=== PATIENT | male | born 1995 | race Caucasian/White ===

== ENCOUNTER 2020-05-27 11:06 | Outpatient (CLI) | payer OTHER, SELFPAY ==
[2020-05-28 06:44] LABS: SARS-CoV-2 RNA PCR Negative
== END 2020-05-27 11:07 | disposition home or self-care (01) ==
PROVIDERS: PCP Family Medicine; Visit Provider Family Medicine
DX: R05 Cough (principal); R51.9 Headache, unspecified; J02.9 Acute pharyngitis, unspecified; R50.9 Fever, unspecified; Z20.828 Contact with and (suspected) exposure to other viral communicable diseases
CPT/HCPCS: 87635; C9803; U0003

== ENCOUNTER 2020-06-22 14:46 | Outpatient (CLI) | payer SELFPAY ==
[2020-06-23 12:24] LABS: SARS-CoV-2 RNA PCR Negative
== END 2020-06-22 14:47 | disposition home or self-care (01) ==
LOC: CHSLAB 14:51
PROVIDERS: PCP Family Medicine; Visit Provider Physician Assistant Medical
DX: R05 Cough (principal); R53.83 Other fatigue; Z20.828 Contact with and (suspected) exposure to other viral communicable diseases
CPT/HCPCS: 87635; C9803; U0003

== ENCOUNTER → 2021-02-25 00:43 | Outpatient (CLI) | payer MEDICAID, SELFPAY ==
[2021-02-25 20:12] LABS: SARS-CoV-2 RNA PCR Negative
== END ==
PROVIDERS: PCP Family Medicine; Visit Provider Family Medicine
DX: J02.9 Acute pharyngitis, unspecified (principal); R05 Cough; R09.89 Other specified symptoms and signs involving the circulatory and respiratory systems; R51.9 Headache, unspecified; Z20.822 Contact with and (suspected) exposure to COVID-19
CPT/HCPCS: C9803; U0003; U0005

== ENCOUNTER 2021-07-26 09:09 | Outpatient (CLI) | payer MEDICAID, SELFPAY ==
[2021-07-26 10:09] LABS: Influenza Control Valid (Valid)
[2021-07-27 21:11] LABS: SARS-CoV-2 RNA PCR Positive
== END 2021-07-26 09:10 | disposition home or self-care (01) ==
PROVIDERS: PCP Family Medicine; Visit Provider Family Medicine
DX: U07.1 COVID-19 (principal); R05.9 Cough, unspecified; R53.83 Other fatigue
CPT/HCPCS: 87804; C9803; U0003; U0005

== ENCOUNTER 2022-07-21 10:37 | Emergency (ER) | payer OTHER, SELFPAY ==
[2022-07-21] VITALS (21 sets, daily range): BP systolic 124–139; BP diastolic 85–102; PULSE 67–74; RESP 14–16; TEMP 36.4–36.7; O2SAT 93–100
--- NOTE | ~2022-07-21 | CT_ITS ---
EXAMINATION: CT abdomen pelvis wo con DATE: 07/21/2022 11:20 INDICATION: Left flank pain TECHNIQUE: Computed tomography (CT) of the abdomen and pelvis was performed without intravenous contr ast. Automated exposure control and iterative reconstruction technique were employed. The dose-length product was 298.27 mGy-cm. COMPARISON: None FINDINGS: Calcified right middle lobe nodule consistent with old granulomatous disease. Heart size is normal. N o pericardial or pleural effusion. Small sliding-type hiatal hernia. Liver, gallbladder, spleen, panc reas and bilateral adrenal glands are normal. 2 mm at least partially obstructing stone at the proxim al left ureter with mild left hydronephrosis. No other urolithiasis at either the left or right kidne y or ureter. Partially decompressed bladder is normal. There are couple sigmoid diverticula without a djacent inflammatory change to suggest diverticular colitis. Small bowel and appendix are normal. No free intraperitoneal gas or fluid. No pathologically enlarged abdominal or pelvic lymphadenopathy. Mi ld thoracolumbar dextrocurvature. IMPRESSION: 1. 2 mm proximal left ureteral stone with mild left hydronephrosis. Reviewed, dictated and finalized at location A. ECT BINDER SETTER
[2022-07-21 11:00] LABS: Basophils Percent Auto 0.6 % (0.2-1.2); Eosinophils Percent Auto 0.5 % (0-4.4); Hematocrit 47.4 % (42.0-52.0); Hemoglobin 16.3 g/dL (14.0-18.0); Immature Granulocyte Absolute 0.02 K/mm3 (0.00-0.031); Immature Granulocyte Percent A 0.3 % (0-0.5); Lymphocytes Absolute Auto 1.87 K/mm3 (0.9-3.2); Lymphocytes Percent Auto 29.7 % (18.3-44.2); Mean Corpuscular HGB Conc 34.4 g/dl (32-36); Mean Corpuscular Hemoglobin 31.2 pg (26-34); Mean Corpuscular Volume 90.8 fl (80-100); Monocytes Absolute Auto 0.5 K/mm3 (0.1-0.6); Monocytes Percent Auto 7.3 % (2.6-8.5); Neutrophils Absolute Auto 3.9 K/mm3 (1.3-6.7); Neutrophils Percent Auto 61.6 % (45.5-73.1); Platelet Count Result 319 k/mm3 (150-375); Red Blood Count 5.22 M/mm3 (4.6-6.20); Red Cell Distribution Width 12.2 % (11.5-14.5); White Blood Count 6.3 K/mm3 (4.5-10.0)
[2022-07-21 11:01] LABS: Appearance Urine Cloudy (Clear); Bilirubin Urine 2+ (Negative); Blood Urine 3+ (Negative); Color Urine Yellow (Yellow); Glucose Urine UA Negative (Negative); Ketones Urine 2+ mg/dL (Negative); Leukocyte Esterase Ur Negative LEU/UL (Negative); Nitrate Urine Negative (Negative); Protein Urine 2+ mg/dL (Negative); Specific Grav Ur >= 1.030 (1.001-1.035); pH Urine 5.5 (5.0-9.0)
[2022-07-21 11:06] LABS: Mucus Urine Heavy /lpf; RBC Urine >75 /hpf (0-2); WBC Urine 0-3 /hpf
[2022-07-21 11:12] LABS: Add Urine Microscopic? YES
--- NOTE | 2022-07-21 11:13 | ED.ABDPAIN ---
HPI - Abdominal Pain General Chief Complaint: Abdominal Pain Stated Complaint: left flank pain Time Seen by Provider: 07/21/22 10:45 History of Present Illness HPI narrative: 27-year-old male presented to the emergency department for evaluation of left flank pain. Patient states symptoms started approximate 1 hour prior to arrival. Patient denies left flank pain that does radiate to his left lower quadrant. Patient denies any pain or radiation to his testicles. Patient does report associated nausea and vomiting. Patient denies any prior history of kidney stones. Patient denies any abdominal surgical history. Related Data Allergies Allergy/AdvReac Type Severity Reaction Status Date / Time No Known Allergies Allergy Mild Verified 11/11/12 18:15 Review of Systems Review of Systems: CONSTITUTIONAL: Denies fever, chills, or sweats. EYES: Denies visual changes, redness, or discharge. ENT: Denies rhinorrhea, congestion, sore throat, or otalgia. CARDIOVASCULAR: Denies chest pain, palpitations, or edema. RESPIRATORY: Denies cough or dyspnea. GASTROINTESTINAL: See HPI GENITOURINARY: Denies dysuria or hematuria. SKIN: Denies rash or itching. MUSCULOSKELETAL: Denies back pain, joint pain, or myalgia. NEUROLOGIC: Denies headache, numbness, or weakness. PMFSH Social History Social History Smoking status: Never smoker Alcohol intake: never Exam Narrative: APPEARANCE: Well appearing, no pain, no distress, well-nourished. HEAD: normocephalic, atraumatic. EYES: PERRLA/EOMI, conjunctivae clear. THROAT: Pharynx clear, no exudate. NECK: Supple. No adenopathy, no masses. RESPIRATORY: Airway patent, respirations nonlabored. Clear to auscultation bilaterally, no rales, rhonchi, wheezing. CARDIOVASCULAR: Regular rate and rhythm without murmurs rubs or gallops. ABDOMINAL: Left CVA tenderness to palpation. Minimal left lower quadrant tenderness to palpation. MUSCULOSKELETAL: Moves all extremities. Strength/ROM intact, No edema, No calf tenderness. NEURO: Alert. Cranial nerves II through XII intact. Grossly intact SKIN: Warm, dry. Normal Color Course Course Emergency Course: Patient was afebrile with no leukocytosis. Patient's UA does show evidence of hematuria but no evidence of infection. A 2 mm proximal ureteral stone. Differential diagnosis for patient's flank pain included diverticulitis, kidney stone, urinary tract infection, colitis, gastritis. Patient was diagnosed with a kidney stone. Patient declined to take the Flomax because he states he cannot take oral medications. Patient and mother were updated on the results of the work-up and plan for treatment at home. Patient reports he did have significant provement of his pain and his nausea was controlled. Patient was encouraged to have close follow-up with urology. All questions concerns were addressed. Vital Signs Vital signs: Vital Signs Temperature 97.6 F 07/21/22 10:39 Pulse Rate 67 07/21/22 10:39 Respiratory Rate 14 07/21/22 10:39 Blood Pressure 139/96 H 07/21/22 10:39 Pulse Oximetry 99 07/21/22 10:39 Oxygen Delivery Room Air 07/21/22 10:39 Temperature 98.0 F 07/21/22 13:01 Pulse Rate 70 07/21/22 13:16 Respiratory Rate 16 07/21/22 13:16 Blood Pressure 137/99 H 07/21/22 13:16 Pulse Oximetry 100 07/21/22 13:16 Oxygen Delivery Room Air 07/21/22 10:39 MDM - Abdominal Pain Lab Data Attestation: I reviewed the patient's lab results. 07/21/22 10:54 07/21/22 10:54 Labs: Lab Results 07/21/22 07/21/22 07/21/22 Range/Units 10:54 10:54 10:54 WBC 6.3 (4.5-10.0) K/mm3 RBC 5.22 (4.6-6.20) M/mm3 Hgb 16.3 (14.0-18.0) g/dL Hct 47.4 (42.0-52.0) % MCV 90.8 (80-100) fl MCH 31.2 (26-34) pg MCHC 34.4 (32-36) g/dl RDW 12.2 (11.5-14.5) % Plt Count 319 (150-375) k/mm3 MPV 10.0 (7.4-10.4) fl Immature Gran % (Auto) 0.3 (0-0.5) % Neut % (Auto) 6
[2022-07-21 11:14] LABS: Alanine Aminotransferase 44 U/L (6-50); Albumin Level 4.8 g/dL (3.5-5.1); Alkaline Phosphatase 81 U/L (38-126); Anion Gap 7 mmol/L (8-16); Aspartate Amino Transferase 34 U/L (17-59); Bilirubin,Total 3.4 mg/dL (0.2-1.3); Blood Urea Nitrogen 12 mg/dL (9-20); Carbon Dioxide 28 mmol/L (22-30); Chloride 101 mmol/L (98-107); Estimated CRCL calculation 81 ml/min; Estimated Glomerular Filt Rate > 60; Glucose 110 mg/dL (65-110); Potassium 3.9 mmol/L (3.4-5.0); Sodium 136 mmol/L (137-145)
[2022-07-21] MEDS: ONDANSETRON INJ 4 MG/2 ML VIAL IV PUSH (11:23)
[2022-07-21] MEDS: HYDROmorphone HCL INJ (*CRX) 1 MG/ML SYR IV PUSH (11:23)
[2022-07-21] MEDS: SODIUM CHLORIDE 0.9% IV 1,000 ML 999 ML IV CONT (11:23)
[2022-07-21] MEDS: KETOROLAC 15 MG/ML VIAL (*BKC) IV PUSH (12:02)
--- NOTE | 2022-07-21 12:21 | PC.NURSE ---
pt refuses to take tamsulosin because he reports he has never been able to swallow pills
== END 2022-07-21 13:29 | disposition home or self-care (01) ==
PROVIDERS: Emergency Provider Emergency Medicine; PCP Family Medicine
DX: N13.2 Hydronephrosis with renal and ureteral calculous obstruction (principal)
CPT/HCPCS: 36415; 74176; 80053; 81001; 85025; 96374; 96375; 99284; J1170; J1885; J2405; J7030

== ENCOUNTER 2022-07-22 16:44 | Emergency (ER) | payer OTHER, MEDICAID, SELFPAY ==
--- NOTE | ~2022-07-22 | CT_ITS ---
EXAMINATION: CT abdomen pelvis wo con DATE: 07/22/2022 17:09 INDICATION: Left flank pain TECHNIQUE: Computed tomography (CT) of the abdomen and pelvis was performed without intravenous contr ast. Automated exposure control and iterative reconstruction technique were employed. The dose-length product was 291.62 mGy-cm. COMPARISON: 07/21/2022 FINDINGS: Lung bases are clear. Heart size is normal. No pericardial or pleural effusion. Liver, gallbladder, s pleen, pancreas, bilateral adrenal glands and right kidney are normal. Slight increase in still mild left hydroureteronephrosis due to a 3 x 2 mm stone which has advanced now at the left ureterovesicula r junction. There is increasing left ureteral and perinephric stranding. Decompressed bladder is norm al. Bowels including appendix are normal. No free intraperitoneal gas or fluid. No pathologically enl arged abdominal or pelvic lymphadenopathy. Mild thoracolumbar dextrocurvature. IMPRESSION: 1. Interval advancement of a 2-3 mm left ureteral stone now at the ureterovesicular junction with sli ght increase in mild left hydronephrosis and increasing perinephric/ureteral stranding. Correlate wit h urinalysis to exclude associated ascending urinary tract infection. Reviewed, dictated and finalized at location A. ITURE DECALS INSPECTOR IMPRESSION: 1. Interval advancement of a 2-3 mm left ureteral stone now at the ureterovesic ular junction with slight increase in mild left hydronephrosis and increasing p erinephric/ureteral stranding. Correlate with urinalysis to exclude associated ascending urinary tract infection.
[2022-07-22 16:45] VITALS: BP 135/96; PULSE 79; RESP 20; TEMP 37.2; O2SAT 98
[2022-07-22 16:47] VITALS: BP 135/96; PULSE 86; RESP 18; TEMP 37.2; O2SAT 98
[2022-07-22 16:54] VITALS: BP 135/96; PULSE 86; RESP 18; TEMP 37.2; O2SAT 98
[2022-07-22] MEDS: ONDANSETRON INJ 4 MG/2 ML VIAL IV PUSH (17:11)
[2022-07-22] MEDS: SODIUM CHLORIDE 0.9% IV 1,000 ML 999 ML IV CONT (17:11)
[2022-07-22] MEDS: KETOROLAC 30 MG/ML VIAL (*BKC) IV PUSH (17:11)
[2022-07-22 17:39] LABS: Basophils Absolute Auto 0.03 K/mm3 (0.00-0.10); Basophils Percent Auto 0.2 % (0.0-1.0); Hematocrit 42.7 % (40.0-54.0); Hemoglobin 14.6 g/dL (14.0-18.0); Immature Granulocyte Absolute 0.06 K/mm3 (0.00-0.00); Immature Granulocyte Percent A 0.4 % (0.0-0.0); Lymphocytes Absolute Auto 1.07 K/mm3 (1.10-4.50); Lymphocytes Percent Auto 7.8 % (18.0-42.0); Mean Corpuscular HGB Conc 34.2 g/dL (32.0-36.0); Mean Corpuscular Hemoglobin 31.1 pg (27.0-31.0); Mean Corpuscular Volume 90.9 fL (78.0-102.0); Mean Platelet Volume 10.7 fl (8.7-11.0); Monocytes Absolute Auto 0.92 K/mm3 (0.10-0.90); Monocytes Percent Auto 6.7 % (2.0-11.0); Neutrophils Absolute Auto 11.7 K/mm3 (1.7-7.2); Neutrophils Percent Auto 84.9 % (50.0-70.0); Platelet Count Result 255 K/mm3 (150-420); Red Cell Distribution Width 11.7 % (11.6-14.4); White Blood Count 13.8 K/mm3 (4.8-10.8)
[2022-07-22 17:53] LABS: Alanine Aminotransferase 33 U/L (16-63); Albumin Level 3.8 g/dL (3.4-5.0); Alkaline Phosphatase 69 U/L (46-116); Anion Gap 9 mmol/L (8-16); Aspartate Amino Transferase 17 U/L (15-37); Bilirubin,Total 3.2 mg/dL (0.00-1.00); Blood Urea Nitrogen 16 mg/dL (7-18); Calcium 8.1 mg/dL (8.5-10.1); Carbon Dioxide 27 mmol/L (21-32); Chloride 101 mmol/L (98-108); Estimated CRCL calculation 79 ml/min; Estimated Glomerular Filt Rate > 60; Glucose 95 mg/dL (70-99); Osmolality Calculated 285 mOsm/kg (285-295); Potassium 3.7 mmol/L (3.5-5.1); Sodium 137 mmol/L (136-145); Total Protein 6.6 g/dL (6.4-8.2)
[2022-07-22 18:12] LABS: Bilirubin Urine 2+ (Negative); Blood Urine 3+ (Negative); Glucose Urine UA Negative (Negative); Ketones Urine 3+ (Negative); Leukocyte Esterase Ur Trace LEU/UL (Negative); Nitrate Urine Negative (Negative); Protein Urine 1+ (Negative); Specific Grav Ur >= 1.030 (1.010-1.020)
[2022-07-22 18:21] LABS: Add Urine Microscopic? YES; Appearance Urine Cloudy (Clear); Calcium Oxalate Crystals Urine Many /hpf; Color Urine Dark Yellow (Yellow); RBC Urine >75 /hpf (0-2)
[2022-07-22 18:22] LABS: Bacteria Urine 4+ /hpf; Mucus Urine Heavy /lpf
--- NOTE | 2022-07-22 18:22 | ED.NAVMDI ---
HPI - Nausea/Vomiting/Diarrhea General Chief complaint: Nausea/Vomiting/Diarrhea Stated complaint: stuck kidney stone;puking more Time Seen by Provider: 07/22/22 16:47 Source: patient Mode of arrival: ambulatory Limitations: no limitations History of Present Illness HPI Narrative: this is a 27-year-old gentleman that presents with some left flank pain was diagnosed yesterday [facility] with a kidney stone that was in the proximal ureter on the left, the patient was given pain control and sent home with pain medication and Flomax, patient presents again today to our emergency department with left flank pain and nausea and vomiting and having difficultly holding down his pain medication because of the nausea and vomiting. Currently there is no fever chills, no hematuria no diarrhea constipation. MD elicited complaint: nausea and vomiting Onset (ago): day(s) Related Data Allergies Allergy/AdvReac Type Severity Reaction Status Date / Time No Known Allergies Allergy Mild Verified 07/22/22 16:52 Review of Systems Review of Systems: All systems reviewed & are unremarkable except as noted in HPI and below PMFSH Past Medical History Medical History Urolithiasis Social History Social History Smoking status: Never smoker Alcohol intake: never Exam Const: General: healthy appearing Nutritional Appearance: well nourished Limitations: no limitations HENMT: Head: normal to inspection Ears: external ears normal Face and sinus: normal facial exam Mouth: Yes Normal oral and palatal mucosa present Throat: posterior oropharynx normal Eyes: Conjunctivae: conjunctivae normal Pupils: Equal, round and reactive pupils present EOM: EOMs intact bilaterally Direct Ophthalmoscopy: no photophobia Neck: Neck: normal visual inspection Chest: Chest palpation & inspection: normal inspection of the chest Resp: Effort & Inspection: normal respiratory effort Auscultation: clear to auscultation bilaterally Cardio: Rate: regular rate Rhythm: regular rhythm GI: GI Palp: Yes Soft to palpation Auscultation: normal bowel sounds : General: Yes bladder normal to palpation and Yes CVA tenderness Other: left flank tenderness with palpation Urinary Catheter: Urinary Catheter: patent and draining Back/Spine/Pelvis: Back: CVA tenderness Skin: General skin exam: normal color Rashes: no rashes Wounds: no wounds Neuro: General: patient oriented x3 Cranial nerves: Yes Nystagmus not present Speech: normal speech Gait exam (Neuro): Normal gait present Extrem: General: normal to inspection Psych: Mental Status: mental status grossly normal Affect: normal affect Course Course Emergency Course: patient received IV fluids and IV Toradol along with IV Zofran nausea and vomiting have significantly improved pain level he still rates it around 4 to a 6 and will give a dose of Dilaudid, reviewed CT scan with patient and family which shows that the kidney stone has migrated distally and is at the UVJ at this time as opposed to proximal ureter yesterday in the ER at [place]. Vital Signs Vital signs: Vital Signs Temperature 37.2 C 07/22/22 16:45 Pulse Rate 79 07/22/22 16:45 Respiratory Rate 20 07/22/22 16:45 Blood Pressure 135/96 H 07/22/22 16:45 Pulse Oximetry 98 07/22/22 16:45 Oxygen Delivery Room Air 07/22/22 16:45 Temperature 37.2 C 07/22/22 16:54 Pulse Rate 86 07/22/22 16:54 Respiratory Rate 18 07/22/22 16:54 Blood Pressure 135/96 H 07/22/22 16:54 Pulse Oximetry 98 07/22/22 16:54 Oxygen Delivery Room Air 07/22/22 16:54 MDM - Nausea/Vomiting/Diarrhea Lab Data 07/22/22 17:31 07/22/22 17:31 Labs: Lab Results 07/22/22 07/22/22 07/22/22 Range/Units 17:31 17:31 17:31 WBC 13.8 H (4.8-10.8) K/mm3 RBC 4.70
[2022-07-22] MEDS: HYDROmorphone HCL INJ (*CRX) 2 MG/ML VIAL 0.5 MG IV PUSH (18:26)
[2022-07-22 18:35] VITALS: BP 119/68; PULSE 68; RESP 16; O2SAT 98
== END 2022-07-22 18:39 | disposition home or self-care (01) ==
PROVIDERS: Emergency Provider Emergency Medicine; PCP Family Medicine
DX: N20.1 Calculus of ureter (principal); R11.2 Nausea with vomiting, unspecified
CPT/HCPCS: 36415; 74176; 80053; 81001; 85025; 96361; 96374; 96375; 99284; J1170; J1885; J2405; J7030

== ENCOUNTER 2022-07-26 10:22 | Outpatient (CLI) | payer OTHER, SELFPAY ==
--- NOTE | ~2022-07-26 | CT_ITS ---
Non-contrast CT scan of the Abdomen and Pelvis Clinical indication: Left ureteral stone Technique: 5 mm axial scans were obtained through the abdomen and pelvis without intravenous or oral contrast. Dose reduction technique was used on this scan by utilizing automated exposure control and iterative reconstruction technique. The dose-length product (DLP) was 337.12 mGy-cm. COMPARISON: 07/22/2022 Findings: Images through the lung bases reveal no abnormalities. 2 mm left UVJ stone is present, without left hydronephrosis. No right renal or ureteral stone. No rig ht hydronephrosis. The liver, spleen, pancreas, gallbladder, and adrenals appear normal. There is no aortic aneurysm. There is no evidence of bowel obstruction. Normal appendix. Images through the pelvis were performed. There is no evidence of ascites or lymphadenopathy. Urinary bladder otherwise unremarkable. Prostate gland mildly enlarged. Impression: Left ureteral stone remains at the left UVJ, unchanged in position. Interval resolution of left hydronephrosis since prior exam however. Reviewed, dictated and finalized at [facility]. S AND MARKETING COORDINATOR Impression: Left ureteral stone remains at the left UVJ, unchanged in position. Interval resolution of left hydronephrosis since prior exam however.
== END 2022-07-26 10:23 | disposition home or self-care (01) ==
PROVIDERS: PCP Family Medicine; Visit Provider Urology
DX: N20.1 Calculus of ureter (principal)
CPT/HCPCS: 74176

== ENCOUNTER 2022-08-01 14:20 | Outpatient (CLI) | payer OTHER, SELFPAY ==
--- NOTE | ~2022-08-01 | CT_ITS ---
Non-contrast CT scan of the Abdomen and Pelvis Clinical indication: Left ureteral stone Technique: 5 mm axial scans were obtained through the abdomen and pelvis without intravenous or oral contrast. Dose reduction technique was used on this scan by utilizing automated exposure control and iterative reconstruction technique. The dose-length product (DLP) was 194.71 mGy-cm. COMPARISON: 07/26/2022 Findings: Images through the lung bases reveal no abnormalities. There is no evidence of renal or ureteral calculi. The kidneys and the ureters are nondilated. The liver, spleen, pancreas, gallbladder, and adrenals appear normal. There is no aortic aneurysm. There is no evidence of bowel obstruction. Images through the pelvis were performed. There is no evidence of ascites or lymphadenopathy. Stable 3 mm stone either at the left UVJ or just within the urinary bladder. Prostate gland and seminal vesi cles are unremarkable. Impression: Stable 3 mm stone at the left UVJ, or possibly just within the urinary bladder. Positioning is unchan ged from prior exam. No hydronephrosis. Reviewed, dictated and finalized at [facility]. GEMENT SCIENTIST Impression: Stable 3 mm stone at the left UVJ, or possibly just within the urinary bladder. Positioning is unchanged from prior exam. No hydronephrosis.
== END 2022-08-01 14:21 | disposition home or self-care (01) ==
PROVIDERS: PCP Family Medicine; Visit Provider Urology
DX: N20.1 Calculus of ureter (principal)
CPT/HCPCS: 74176

== ENCOUNTER 2022-08-03 00:11 | Day surgery (SDC) | payer OTHER, SELFPAY ==
[2022-08-02 10:29] VITALS: BMI 25.0
--- NOTE | 2022-08-02 10:32 | PC.NURSE ---
Report to the Outpatient Waiting Room, entrance under the green pavilion located off [facility], at time 1400 on date 08/03/22. Planned Procedure Time: 1600. Time changes happen often and if your time is changed the preop area will call you the afternoon before. - You and your visitor will be asked to self-screen and do not enter if you have any COVID symptoms. - Only one visitor is requested with a max of two and NO children visitors are allowed at this time. - The patient visitor may be requested to leave or wait in car when not with patient due to distancing restrictions. - A mask is optional within the hospital at this time. Patients may have clear liquids (water, carbonated beverages, clear teas, apple juice) until 3 hours prior to surgery with a maximum of 20 ounces. - No food from midnight until time of surgery Take the following medications with a SIP of water the morning of surgery: PAIN PILL IF NEEDED DO NOT STOP ANY OF YOUR OTHER PRESCRIPTION MEDICATIONS PRIOR TO SURGERY EXCEPT THE FOLLOWING Medications to discontinue per physician: N/A Date to take last dose: N/A Please no make-up, nail mauritanian, hairspray, perfume, deodorant, or body powder the day of surgery. No jewelry (including any body piercings) or valuables the day of surgery, leave them at home. Please take a shower or bath the night before, or the morning of, surgery with an antibacterial soap. Wear comfortable, loose fitting clothing. - Jewelry must be removed prior to entering the operating room. Rings and piercings that are not removed may be cut off. - The hospital will not accept responsibility for valuables. - Please leave all valuables, including medications, at home the day of surgery. If you are going home after surgery, a licensed car driver must drive you home. - NO public transportation without another adult if you receive anesthesia. - We recommend that an adult stay with you for 24 hours following discharge. - We also recommend that you do not drive, make important decision, drink alcoholic beverages, or take any drugs that were not prescribed by your health care provider for at least 24 hours after your discharge time. Follow any additional instructions given to you from your surgeon. If you or anyone in your household have experienced Covid symptoms in the past week, please notify your surgeon or the nurse liaison at the phone number below for possible testing. Telephone instructions given to PT - NEVA PADGETT and asked if any additional questions and then verbalized understanding. Patient advised to call surgeon office or pre surgery nurse liaison [phone] if any additional questions.
[2022-08-03] VITALS (8 sets, daily range): BP systolic 96–120; BP diastolic 59–72; PULSE 51–68; RESP 10–20; TEMP 36.5–37.1; O2SAT 97–100
--- NOTE | ~2022-08-03 | XR_ITS ---
EXAMINATION: XR fluoroscopy no charge DATE: 08/03/2022 14:06 INDICATION: Renal stone extraction TECHNIQUE: Single fluoroscopic image of the pelvis and lower abdomen was obtained during procedure pe rformed by Dr. Reddy. Radiologist was not present for the imaging or procedure. The amount of fluoro scopy time used during this procedure was 0.1 minutes. COMPARISON: CT dated 08/01/2022 FINDINGS/IMPRESSION: Catheter is seen advanced cephalad along the left ureter and beyond the cephalad margin of the field of imaging. No stones identified. See procedure note for further detail. Reviewed, dictated and finalized at location L. AL SERVICE AGENCY DIRECTOR
--- NOTE | 2022-08-03 06:39 | WPDHPUPDATE1 ---
History and Physical Update Update Date/Time: 08/03/22 06:39 History and Physical has been reviewed, including an updated exam of the patient. There are NO changes in the patient's condition. Risks, benefits, and alternatives have been discussed and questions answered. Patient agrees to proceed with procedure.
[2022-08-03] MEDS: LACTATED RINGERS 1,000 ML 30 ML IV CONT (07:52)
--- NOTE | 2022-08-03 07:52 | P.PNAN_ITS ---
Anes - Initial Pre Proc Eval Procedure: Operation Date: 08/03/22 09:00 Proposed Procedures p Cystoscopy, Left Ureteroscopy, Left Retrograde Pyelogram, Left Stone Extraction, Possible Left Stent Placement, Possible Holmium Laser Procedure - Tesfaye Reddy MD Date/Time: 08/03/22 07:52 Surgeon: Tesfaye Reddy MD Pre Op Diagnosis: left ureteral stone Patient Data Age: 27 Gender: M Height: 1.73 m Weight: 76.2 kg Last Vital Signs Temp 36.5 C 08/03/22 07:48 Pulse 68 08/03/22 07:48 Resp 14 08/03/22 07:48 BP 120/72 08/03/22 07:48 Pulse Ox 100 08/03/22 07:48 O2 Del Method Room Air 08/03/22 07:48 Allergies Allergy/AdvReac Type Severity Reaction Status Date / Time No Known Allergies Allergy Mild Verified 08/03/22 07:53 Home Medications Medication Instructions Recorded Confirmed Type hydrocodone 5 mg-acetaminophen 325 1 tablet PO Q8H PRN pain #14 tabs 07/21/22 08/02/22 Rx mg tablet tamsulosin 0.4 mg capsule (Flomax) 0.4 mg PO DAILY #10 caps 07/21/22 08/02/22 Rx hydrocodone 7.5 mg-acetaminophen 15 ml PO Q6H PRN pain #118 mL 07/22/22 08/02/22 Rx 325 mg/15 mL oral solution ondansetron 4 mg disintegrating 4 mg PO Q6H PRN nausea and 07/22/22 08/02/22 Rx tablet vomiting #14 tabs Patient hx anesthesia problems: none Family hx anesthesia problems: none Results Review: All pre-operative results and documents have been reviewed as part of the pre- operative evaluation. [facility] Past Medical History Medical History Urolithiasis Social History Social History Smoking status: Never smoker Alcohol intake: current Alcohol use details: 1/MONTH Substance use: never Substance use type: does not use Lack of Transportation: No Lack of Food: Never True Current Housing: I Have Housing Concerned About Future Housing: No Difficulty Paying Gas/Electric Bills: No Difficulty Paying for Meds: No Currently Unemployed: No Education: High School Diploma/GED Difficulty w/ Childcare or Family Care: No Living arrangements: with family Spiritual care concerns: No Anes - Eval Final PreProcedure Day of Procedure 08/03/22 07:52 Patient weight: overweight Heart: regular rate and rhythm Lungs: clear to auscultation Airway: Mallampati scale class II Neurological: alert and oriented Last oral intake: >/= 8 hours ASA classification: II Emergent: no Anesthetic plan: proceed Anesthesia type and monitoring: general LMA and standard monitoring Results Review: All pre-operative results and documents have been reviewed as part of the pre- operative evaluation. Informed Consent: The patient's anesthetic plan and its attendant risks and benefits were discussed with the patient/family/POA. Questions were solicited and answers provided to the satisfaction of the patient/family/POA.
[2022-08-03] MEDS: ceFAZolin 2 GM/D5W 50 ML 2 GM/50 ML BAG IVPB (08:35)
[2022-08-03] MEDS: LIDOCAINE HCL 2% GEL UROJET 10 ML PKG MUCOUS MEM (08:50)
--- NOTE | 2022-08-03 09:01 | W.PM.PROC2 ---
Procedure Note - Detailed Date of Procedure 08/03/22 Pre-op Diagnosis Left ureteral stone Post-op Diagnosis Same Procedure Performed Cystoscopy, left ureteroscopy and stone extraction Surgeon Tesfaye Reddy MD Anesthesia General Description of Procedure The patient was brought to the operative suite where he is prepped and draped in a routine sterile fashion while in the dorsal lithotomy position after the uneventful induction of a general LMA anesthetic. A 19F rigid cystoscope was placed in the bladder. There are no urethral strictures. His prostatic urethra measures, approximately, 1.0cm.. The bladder mucosa was endoscopically normal without hyperemia or neoplasm. There was a single, orthotopic ureteral orifice bilaterally. A 0.035 glidewire was advanced into the left renal pelvis under fluoroscopy. The distal ureter was dilated with an 8F/10F ureteral dilator. Ureteroscopy was undertaken with a short, tapered, semi-rigid ureteroscope and the stone was extracted with ease using a[1.9F Escape disposable stone basket. Due to the ease of this manipulation I opted not to place a ureteral stent. The patient's bladder was emptied and was taken to the recovery room having tolerated this procedure well. Drains No Packing Yes Pathology None sent Complications No immediate complications
[2022-08-03] MEDS: KETOROLAC 30 MG/ML VIAL (*BKC) IV PUSH (09:02)
[2022-08-03] MEDS: oxyCODONE HCL (*CRX) 5 MG TAB IR PO (10:05)
== END 2022-08-03 10:55 | disposition home or self-care (01) ==
PROVIDERS: PCP Family Medicine; Visit Provider Urology
PROC: (CPT 52352; principal; 2022-08-03 09:00)
DX: N20.1 Calculus of ureter (principal)
CPT/HCPCS: 52352; 82365; 88300; 99199; A9270; C1769; J0690; J1100; J1885; J2250; J2405; J2704; J3010; J7120

== ENCOUNTER 2024-01-18 13:07 | Outpatient (CLI) | payer BC, SELFPAY ==
--- NOTE | ~2024-01-18 | CT_ITS ---
EXAMINATION: CT ankle RT wo con DATE: 01/18/2024 13:40 INDICATION: Post fracture at the right ankle TECHNIQUE: High resolution computed tomography (CT) of the right ankle was performed without intraven ous contrast. Additional sagittal and coronal reconstructions were performed. Automated exposure cont rol and iterative reconstruction technique were employed. The dose-length product was 318.25 mGy-cm. COMPARISON: Right ankle radiographs dated 11/11/2012 FINDINGS: Plaster splinting material about the right ankle. There is a comminuted Lomax type B3 trimalleolar fr acture at the right ankle. The main oblique fracture line of the lateral malleolar fracture extends from proximal posteriorly to distal anteriorly extending to the level of the tibiotalar joint line. The fracture is comminuted wi th anteromedial distraction of a small fragment at the anterior tip of the lateral malleolus likely r epresenting the footplate of the anterior talofibular ligament. There is a transverse fracture across the medial malleolus at the level of the tibiotalar joint line which is also comminuted with a few tiny fracture fragments along the main fracture plane. Talar dome is subluxed a couple millimeter laterally with respect to the tibial plafond. There is 40 degrees [place] angulation of the medial malleolar fragment with respect to the more proximal tibia with the dist al tip of the medial malleolar fragment remaining in relatively close proximity to the medial margin of the talar dome suggesting that it remains normally anchored to the talus with relatively intact de ltoid ligament. There is a relatively large posterior malleolar fragment with oblique coronally oriented fracture forest ne significant portion of the articular surface or the posterior tibial plafond and which measures 2.7 cm medial collateral and 1.5 cm anteroposteriorly from the more proximal tibial plafond and. There is 15 degrees posterior angulation of the posterior malleolar fragment resulting in an 8 m m wide fracture gap along the articular surface of the tibial plafond. There is also mild combination along the posterior malleolar fracture with a couple small displaced fragments situated within the w idened fracture plane. Of note the tibialis posterior tendon partially herniates into the inferomedia l aspect of the fracture defect with distortion of the contour of the tendon. No fracture of the talus or visualized mid or hindfoot. There is subcutaneous edema about the ankle. No significant ankle joint effusion. IMPRESSION: 1. Lomax type B3 malleolar fracture as detailed above including herniation of a portion of the tibial is posterior tendon into the medial aspect of the posterior malleolar fracture plane. Reviewed, dictated and finalized at location A. IMPRESSION: 1. Lomax type B3 malleolar fracture as detailed above including herniation of a portion of the tibialis posterior tendon into the medial aspect of the posteri or malleolar fracture plane.
== END 2024-01-18 13:08 | disposition home or self-care (01) ==
PROVIDERS: PCP Family Medicine
DX: S82.891A Other fracture of right lower leg, initial encounter for closed fracture (principal)
CPT/HCPCS: 73700

== ENCOUNTER 2024-01-24 19:22 | Emergency (ER) | payer BC, SELFPAY ==
[2024-01-24 19:39] VITALS: BP 132/94; PULSE 70; RESP 18; TEMP 36.6; O2SAT 97
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
[2024-01-24] MEDS: MORPHINE SULFATE INJ (*CRX) 10 MG/ML AMP IM (20:29)
[2024-01-24] MEDS: ONDANSETRON HCL ODT 4 MG TABLET PO (20:30)
[2024-01-24] MEDS: oxyCODONE/ACETAMINOPHEN (*CRX) 5-325 MG TABLET 1 TABLET PO (21:25)
[2024-01-24 21:31] VITALS: BP 133/79; PULSE 71; RESP 18; O2SAT 99
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
== END 2024-01-24 21:31 | disposition home or self-care (01) ==
PROVIDERS: Emergency Provider Emergency Medicine; PCP Family Medicine
DX: G89.18 Other acute postprocedural pain (principal); S82.851D Displaced trimalleolar fracture of right lower leg, subsequent encounter for closed fracture with routine healing; V89.2XXD Person injured in unspecified motor-vehicle accident, traffic, subsequent encounter
CPT/HCPCS: 96372; 99283; A9270; J2270

== ENCOUNTER 2024-03-24 09:46 | Outpatient (RCR) | payer MEDICAID, OTHER, SELFPAY ==
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
--- NOTE | 2024-03-24 10:59 | OPREHPOC ---
Outpatient Therapy Plan of Care This is a Multidisciplinary Plan of Care that may contain components documented by all disciplines (PT, OT, and ST.) PT Problem 1 PT Problem #1 Knowledge Deficit PT Goal 1 Goal / Goal Update Pt. will be independent with a HEP focusing ROM latter-day. Target Visit 2 PT Problem 2 PT Problem #2 Impaired Gait PT Goal 1 Goal / Goal Update Pt. will advance to FWB in the boot without crutches Pt. will be appropriate to wean from the boot. Pt. will ambulate over indoor and outdoor surface without boot demonstrating equal right and left stance time. Target Visit 12 PT Problem 3 PT Problem #3 Impaired Range of Motion PT Goal 1 Goal / Goal Update -Pt. will present with5 degrees active ankle dorsiflexion on the right -Pt. will be able to navigate stairs with reciprocal pattern demonstrating functional ankle dorsiflexion ROM. Target Visit 12 PT Problem 4 PT Problem #4 Impaired Strength PT Goal 1 Goal / Goal Update Pt. will be able to complete 5 single limb heel raises on the right demonstrating improved PF stregth. Target Visit 12
--- NOTE | 2024-04-14 09:56 | PTOPPROG ---
Assessment and note entered by Mars [facility] Evaluation Information Assessment Status Progress Diagnosis closed trimalleolar fracture ICD-10 Condition Codes (PT) M25.571 Onset 01/10/24 Subjective Information Pt. reports that he is wearing the boot only about 25% of the day. He states that he still has pain with being on his feet for long periods. He states that he is no longer using his crutch at home, but does use a single crutch with long distance walking. He reports that his goal remains to return to normal walking and be able to go without the boot. Assessment PT Clinical Summary Mr. Hoyt has attended a total of 10 treatment sessions. In this time he has demonstrated improvements in ankle ROM, right l.e. weight bearing, gait mechanics and function. Despite these improvements he continues to present with deficits, including impaired ROM, impaired strength and continued gait impairments. Given the seriousness of the injury, he appears to be progressing as expected. Continued skilled PT is indicated in order to improve these areas to continue to progress toward the goal of independent ambulation and being able to transition to normal footwear with all activities. We will reduce frequency to 2x/week. Plan of Care Interventions Electrical Stimulation,Gait Training,Hot Pack/Cold Pack,Manual Therapy,Neuro Re-education,Patient/ Caregiver Educati,Therapeutic Activities, Therapeutic Exercise PT Services Indicated Yes Treatment Frequency and 2x/week x 10 visits Duration These treatments will address the objective and functional deficits as defined above. The patient will be advanced safely and appropriately in order for the patient to progress towards his/her prior level of function. Additional exercises will be introduced and as well as a comprehensive home exercise program upon discharge, if needed, ?to ensure carryover of functional gains achieved in the clinic. This treatment plan has been reviewed and agreement upon by the patient.
--- NOTE | 2024-05-13 09:48 | OPREHPOC ---
Outpatient Therapy Plan of Care This is a Multidisciplinary Plan of Care that may contain components documented by all disciplines (PT, OT, and ST.) PT Problem 1 PT Problem #1 Knowledge Deficit PT Goal 1 Goal / Goal Update Pt. will be independent with a HEP focusing ROM scientology. Target Visit 2 Progress Met PT Goal 2 Goal / Goal Update New Goal: The patient will be independent in a HEP for right ankle strength. Target Visit 24 PT Problem 2 PT Problem #2 Impaired Gait PT Goal 1 Goal / Goal Update Pt. will advance to FWB in the boot without crutches. met Pt. will be appropriate to wean from the boot. met Pt. will ambulate over indoor and outdoor surface without boot demonstrating equal right and left stance time. met Target Visit 12 Progress Met PT Goal 2 Goal / Goal Update New Goal: The patient will ambulate 1,000 feet during the 6 minute walk test with normal gait mechanics to improve community ambulation. The patient will be able to ambulate over uneven terrain of grass and rocks without right ankle pain. Target Visit 30 PT Problem 3 PT Problem #3 Impaired Range of Motion PT Goal 1 Goal / Goal Update -Pt. will present with 5 degrees active ankle dorsiflexion on the right -not met -Pt. will be able to navigate stairs with reciprocal pattern demonstrating functional ankle dorsiflexion ROM. -not met Target Visit 12 Progress Not Met PT Goal 2 Goal / Goal Update Continue Target Visit 30 PT Problem 4 PT Problem #4 Impaired Strength PT Goal 1 Goal / Goal Update Pt. will be able to complete 5 single limb heel raises on the right demonstrating improved PF stregth. Target Visit 12 Progress Not Met PT Goal 2 Goal / Goal Update Continue Target Visit 30 PT Problem 5 PT Problem #5 Impaired Strength PT Goal 1 Goal / Goal Update New Goal: The patient will demonstrate 5/5 right ankle strength throughout without pain elicited. Target Visit 30
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
--- NOTE | 2024-06-18 11:06 | OPREHPOC ---
Outpatient Therapy Plan of Care This is a Multidisciplinary Plan of Care that may contain components documented by all disciplines (PT, OT, and ST.) PT Problem 1 PT Problem #1 Knowledge Deficit PT Goal 1 Goal / Goal Update Pt. will be independent with a HEP focusing ROM roman catholic. Target Visit 2 Progress Met PT Goal 2 Goal / Goal Update New Goal: The patient will be independent in a HEP for right ankle strength. Target Visit 24 Progress Met PT Problem 2 PT Problem #2 Impaired Gait PT Goal 1 Goal / Goal Update Pt. will advance to FWB in the boot without crutches. met Pt. will be appropriate to wean from the boot. met Pt. will ambulate over indoor and outdoor surface without boot demonstrating equal right and left stance time. met Target Visit 12 Progress Met PT Goal 2 Goal / Goal Update New Goal: The patient will ambulate 1,000 feet during the 6 minute walk test with normal gait mechanics to improve community ambulation. The patient will be able to ambulate over uneven terrain of grass and rocks without right ankle pain. Target Visit 30 Progress Not Met PT Problem 3 PT Problem #3 Impaired Range of Motion PT Goal 1 Goal / Goal Update -Pt. will present with 5 degrees active ankle dorsiflexion on the right -not met -Pt. will be able to navigate stairs with reciprocal pattern demonstrating functional ankle dorsiflexion ROM. -not met Target Visit 12 Progress Not Met PT Goal 2 Goal / Goal Update Continue Target Visit 30 PT Problem 4 PT Problem #4 Impaired Strength PT Goal 1 Goal / Goal Update Pt. will be able to complete 5 single limb heel raises on the right demonstrating improved PF stregth. Target Visit 12 Progress Met PT Goal 2 Goal / Goal Update Continue Target Visit 30 PT Problem 5 PT Problem #5 Impaired Strength PT Goal 1 Goal / Goal Update New Goal: The patient will demonstrate 5/5 right ankle strength throughout without pain elicited. Target Visit 30 Progress Not Met PT Goal 2 Goal / Goal Update continue
--- NOTE | 2024-06-18 11:06 | PTOPPROG ---
Assessment and note entered by Mica Vigil, PT Evaluation Information Assessment Status Evaluation Diagnosis closed trimalleolar fracture ICD-10 Condition Codes (PT) Pain in right ankle and joints of right foot M25. 571 Onset 01/10/24 Subjective Information Tad Hoyt reports he went to the surgeon on 06/12/24 and he wanted him to continue PT for another month. He reports the surgeon offered to do another surgery to lengthen his achilles tendon . He would not be able to have another surgery until his wound completely heals which he was told will probably be by next week. He is unsure if he wants to have another surgery. He notes minimal pain in the right ankle just stiffness. He does not feel like his ankle has changed much lately. He notes he still has pain and difficulty with going down stairs. He remains off work. Assessment PT Clinical Summary Tad Hoyt has completed 29 skilled PT visits following a right trimalleolar fracture and surgical stabilization. He has also been going to wound care for one incision that would not heal. He saw his surgeon on 06/12/24 and was referred back to PT for four more weeks. The surgeon recommend another surgery as well to release his Achilles tendon. The patient c/o stiffness in the right ankle and has ongoing difficulty going down stairs, is unable to run, and is unable to work. He demonstrates improved right ankle strength and improved balance. He has hit a plateau in ROM progression today compared to his last progress summary on 05/15/24 however, treatment has focused on strengthening and stability the last month. He will continue to benefit from skilled PT for ankle mobilization, ankle strengthening, stability training, and return to jogging/running. Plan of Care Interventions Neuro Re-education,Patient/Caregiver Education, Therapeutic Activities,Therapeutic Exercise PT Services Indicated Yes Treatment Frequency and 2 times a week for 8 visits Duration These treatments will address the objective and functional deficits as defined above. The patient will be advanced safely and appropriately in order for the patient to progress towards his/her prior level of function. Additional exercises will be introduced and as well as a comprehensive home exercise program upon discharge, if needed, ?to ensure carryover of functional gains achieved in the clinic. This treatment plan has been reviewed and agreement upon by the patient.
== END 2024-06-20 09:45 | disposition still patient (30) ==
LOC: CHSPT 09:46
PROVIDERS: PCP Family Medicine
DX: S82.851A Displaced trimalleolar fracture of right lower leg, initial encounter for closed fracture (principal)
CPT/HCPCS: 97110; 97116; 97140; 97150; 97161; 97530

== ENCOUNTER 2024-06-25 08:52 | Outpatient (RCR) | payer OTHER, SELFPAY ==
--- NOTE | 2024-07-18 09:54 | OPREHPOC ---
Outpatient Therapy Plan of Care This is a Multidisciplinary Plan of Care that may contain components documented by all disciplines (PT, OT, and ST.) PT Problem 1 PT Problem #1 Knowledge Deficit PT Goal 1 Goal / Goal Update Pt. will be independent with a HEP focusing ROM holiness. Target Visit 2 Progress Met PT Goal 2 Goal / Goal Update New Goal: The patient will be independent in a HEP for right ankle strength. Target Visit 24 Progress Met PT Problem 2 PT Problem #2 Impaired Gait PT Goal 1 Goal / Goal Update Pt. will advance to FWB in the boot without crutches. met Pt. will be appropriate to wean from the boot. met Pt. will ambulate over indoor and outdoor surface without boot demonstrating equal right and left stance time. met Target Visit 12 Progress Met PT Goal 2 Goal / Goal Update New Goal: The patient will ambulate 1,000 feet during the 6 minute walk test with normal gait mechanics to improve community ambulation. met The patient will be able to ambulate over uneven terrain of grass and rocks without right ankle pain. not attempted due to snow Target Visit 30 Progress Met PT Problem 3 PT Problem #3 Impaired Range of Motion PT Goal 1 Goal / Goal Update -Pt. will present with 5 degrees active ankle dorsiflexion on the right -met -Pt. will be able to navigate stairs with reciprocal pattern demonstrating functional ankle dorsiflexion ROM. -not met Target Visit 12 Progress Not Met PT Goal 2 Goal / Goal Update . Target Visit 30 PT Problem 4 PT Problem #4 Impaired Strength PT Goal 1 Goal / Goal Update Pt. will be able to complete 5 single limb heel raises on the right demonstrating improved PF stregth. Target Visit 12 Progress Met PT Goal 2 Goal / Goal Update . Target Visit 30 PT Problem 5 PT Problem #5 Impaired Strength PT Goal 1 Goal / Goal Update New Goal: The patient will demonstrate 5/5 right ankle strength throughout without pain elicited. Target Visit 30 Progress Met PT Goal 2 Goal / Goal Update .
--- NOTE | 2024-07-18 09:54 | PTOPDC ---
Assessment and note entered by JT File, PT Evaluation Information Assessment Status Discharge Diagnosis closed trimalleolar fracture ICD-10 Condition Codes (PT) Pain in right ankle and joints of right foot M25. 571 Onset 01/10/24 Subjective Information patient reports he feels the ankle is improved overall. he reports he has no pain at rest, but it does feel stiff most of the time. he reports he does notice some popping when he walks, and only has pain with going down steps. he reports he is not able to return to work until the wound is completely closed. he reports he follows on with wound care. Reported Pain Level Pain Score 0: Self Report Assessment PT Clinical Summary mr. blood presents to skilled PT for his 39th skilled therapy visit for the R ankle. he displays improved R ankle DF rom, improve R ankle strength , decreased pain, and improve gait and stair ambulation mechanics. he has met all goals for skilled PT today. he will DC to an independent HEP , and return to [facility] for follow up for release to return to work. Plan of Care PT Services Indicated Yes
== END 2024-07-18 09:57 | disposition home or self-care (01) ==
LOC: CHSPT 08:52
PROVIDERS: PCP Family Medicine
DX: S82.851D Displaced trimalleolar fracture of right lower leg, subsequent encounter for closed fracture with routine healing (principal)
CPT/HCPCS: 97110; 97530